=== PATIENT | male | born 1950 | race Caucasian/White ===

== ENCOUNTER 2020-07-12 09:25 | Emergency (ER) | payer MEDICARE, OTHER ==
--- NOTE | 2020-07-12 10:06 | EDM.PDOC ---
ED HPI GENERAL MEDICAL PROBLEM - General Chief Complaint: General Time Seen by Provider: 07/12/20 09:35 Source of Information: Reports: Patient - History of Present Illness INITIAL COMMENTS - FREE TEXT/NARRATIVE: Jesse is a 69 y/o male who comes to the ER this AM with a 2 weeks history of "not feeling well." He reports over the weekend he began to feel even worse. Has had a decreased appetite and just been very weak. Usually has sinus symptoms this time of year and he thought that's what it was but he has been so tired. No fever. Denies any N/V/D. - Related Data Allergies Allergy/AdvReac Type Severity Reaction Status Date / Time No Known Allergies Allergy Verified 07/12/20 09:54 Home Meds: Home Meds Albuterol Sulfate [Albuterol Sulfate Hfa] 2 inh IH Q4HR PRN 30 Days #18 [email or web address] 07/12/20 [Rx] Azithromycin 250 mg PO DAILY 5 Days #5 tablet 07/12/20 [Rx] Past Medical History HEENT History: Reports: Sinusitis - Infectious Disease History Infectious Disease History: Reports: Novel Coronavirus Social & Family History - Tobacco Use Smoking Status *Q: Former Smoker Used Tobacco, but Quit: Yes Month/Year Tobacco Last Used: 06/2020 ED ROS GENERAL - Review of Systems Review Of Systems: See Below Constitutional: Reports: Malaise, Weakness, Fatigue HEENT: Reports: Sinus Problem Respiratory: Reports: No Symptoms Cardiovascular: Reports: No Symptoms Endocrine: Reports: No Symptoms GI/Abdominal: Reports: Decreased Appetite : Reports: No Symptoms Musculoskeletal: Reports: No Symptoms Skin: Reports: No Symptoms Neurological: Reports: No Symptoms Psychiatric: Reports: No Symptoms Hematologic/Lymphatic: Reports: No Symptoms Immunologic: Reports: No Symptoms ED EXAM, GENERAL - Physical Exam Exam: See Below Exam Limited By: No Limitations General Appearance: Alert, WD/WN, No Apparent Distress (Elderly male, appears to not feel well.) Eye Exam: Bilateral Eye: PERRL Ears: Normal External Exam, Normal Canal, Hearing Grossly Normal, Normal TMs Nose: Normal Inspection, Normal Mucosa, No Blood Throat/Mouth: Normal Inspection, Normal Lips, Normal Teeth, Normal Oropharynx, Normal Voice, No Airway Compromise Head: Atraumatic, Normocephalic Neck: Normal Inspection, Supple Respiratory/Chest: No Respiratory Distress, Rales (intermittent in the RLL posteriorly) Cardiovascular: Normal Peripheral Pulses, Regular Rate, Rhythm, No Edema GI/Abdominal: Normal Bowel Sounds, Soft, Non-Tender (Male) Exam: Deferred Rectal (Males) Exam: Deferred Back Exam: Normal Inspection Extremities: Normal Inspection, No Pedal Edema, Normal Capillary Refill Neurological: Alert, Oriented, CN II-XII Intact, Normal Cognition, No Motor/Sensory Deficits Psychiatric: Normal Affect, Normal Mood Skin Exam: Warm, Dry, Intact, Normal Color Lymphatic: No Adenopathy Course - Vital Signs Text/Narrative:: 0935 Patient seen by the SOURCING COORDINATOR. COVID test done. 1000 COVID + noted, additional labs and CXR ordered. 1045 CXR reviewed. D-Dimer=1.85. Will obtained CTA since D Dimer elevated and COVID+. XRay notes a pneumonia, but labs reflect a viral presentation but will cover patient with Ceftriaxone 1mg IM and then place home on oral Azithromycin if CT neg. 1300 CTA results reviewed. Discussed with patient. He was given discharge instructions and left the ER in stable condition. Questions were also answered for his via phone. Both denied any questions and understood when to return. Last Recorded V/S: Last Vital Signs Temp 36.4 C 07/12/20 09:35 Pulse 104 H 07/12/20 11:30 Resp 18 07/12/20 11:30 BP 128/74 07/12/20 11:30 Pulse Ox 95 07/12/20 11:30 - Orders/Labs/Meds Labs: Laboratory Tests 07/12/20 07/12/20 07/12/20 Range/Units 09:40 10:10 10:10 WBC 7.7 (4.0-10.0) x10^3/uL RBC 4.84 (4.5-6.0) x10^6/uL Hgb 14.8 (14.0-18.0) g/dL Hct 41.6 (40.0-52.0) % MCV 86.0 (78.0-93.0) fL MCH 30.6 (26.0-32.0) pg MCHC 35.6 (32.0-36.0) g/dL RDW Coeff of Yung 12.2 (10.0-15.0) % Plt Count 306 (130-400) x10^3/uL Add Manual Diff Yes Neutrophils % (Manual) 70 (50-80) % Band Neutrophils % 2 (0-6) % Lymphocytes % (Manual) 14 L (25-50) % Atypical Lymphs % 1 H (0) % Monocytes % (Manual) 12 H (2-11) % Eosinophils % (Manual) 1 (0-4) % Platelet Estimate Adequate PT 10.2 (9.5-12.3) SEC INR 0.9 L (2.0-3.5) APTT 28.8 (25.6-32.8) SEC D-Dimer, Quantitative 1.85 H (<=0.58) mg/LFEU Sodium (136-145) mmol/L Potassium (3.5-5.1) mmol/L Chloride (98-107) mmol/L Carbon Dioxide (21-32) mmol/L Anion Gap (10-20) mmol/L BUN (7-18) mg/dL Creatinine (0.70-1.30) mg/dL Est Cr Clr Drug Dosing Estimated GFR (MDRD) Glucose (74-106) mg/dL Calcium (8.5-10.1) mg/dL Corrected Calcium (8.5-10.1) mg/dL Total Bilirubin (0.2-1.0) mg/dL AST (15-37) U/L ALT (16-63) U/L Alkaline Phosphatase (46-116) U/L Total Protein (6.4-8.2) g/dL Albumin (3.4-5.0) g/dL Globulin Albumin/Globulin Ratio Urine Color (YELLOW) Urine Appearance (CLEAR) Urine pH (5.0-8.0) Ur Specific [place] Urine Protein (NEGATIVE) mg/dL Urine Glucose (UA) (NEGATIVE) mg/dL Urine Ketones (NEGATIVE) mg/dL Urine Occult Blood (NEGATIVE) Urine Nitrite (NEGATIVE) Urine Bilirubin (NEGATIVE) Urine Urobilinogen (0.2) EU/dL Ur Leukocyte Esterase (NEGATIVE) Urine RBC (NOT SEEN) /HPF Urine WBC (NOT SEEN) /HPF Ur Squamous Epith Cells (NEGATIVE) /HPF Urine Bacteria (NEGATIVE) /HPF Urine Mucus (NEGATIVE) /LPF SARS CoV-2 RNA Rapid NICOLE Positive H (NEGATIVE) 07/12/20 07/12/20 Range/Units 10:10 10:22 WBC (4.0-10.0) x10^3/uL RBC (4.5-6.0) x10^6/uL Hgb (14.0-18.0) g/dL Hct (40.0-52.0) % MCV (78.0-93.0) fL MCH (26.0-32.0) pg MCHC (32.0-36.0) g/dL RDW Coeff of Yung (10.0-15.0) % Plt Count (130-400) x10^3/uL Add Manual Diff Neutrophils % (Manual) (50-80) % Band Neutrophils % (0-6) % Lymphocytes % (Manual) (25-50) % Atypical Lymphs % (0) % Monocytes % (Manual) (2-11) % Eosinophils % (Manual) (0-4) % Platelet Estimate PT (9.5-12.3) SEC INR (2.0-3.5) APTT (25.6-32.8) SEC D-Dimer, Quantitative (<=0.58) mg/LFEU Sodium 135 L (136-145) mmol/L Potassium 3.8 (3.5-5.1) mmol/L Chloride 99 (98-107) mmol/L Carbon Dioxide 23 (21-32) mmol/L Anion Gap 16.8 (10-20) mmol/L BUN 21 H (7-18) mg/dL Creatinine 1.2 (0.70-1.30) mg/dL Est Cr Clr Drug Dosing TNP Estimated GFR (MDRD) > 60 Glucose 150 H (74-106) mg/dL Calcium 8.7 (8.5-10.1) mg/dL Corrected Calcium 9.58 (8.5-10.1) mg/dL Total Bilirubin 0.6 (0.2-1.0) mg/dL AST 70 H (15-37) U/L ALT 115 H (16-63) U/L Alkaline Phosphatase 93 (46-116) U/L Total Protein 7.6 (6.4-8.2) g/dL Albumin 2.9 L (3.4-5.0) g/dL Globulin 4.7 Albumin/Globulin Ratio 0.62 Urine Color Yellow (YELLOW) Urine Appearance Clear (CLEAR) Urine pH 6.5 (5.0-8.0) Ur Specific [place] 1.015 Urine Protein 30 H (NEGATIVE) mg/dL Urine Glucose (UA) Negative (NEGATIVE) mg/dL Urine Ketones Negative (NEGATIVE) mg/dL Urine Occult Blood Negative (NEGATIVE) Urine Nitrite Negative (NEGATIVE) Urine Bilirubin Negative (NEGATIVE) Urine Urobilinogen 0.2 (0.2) EU/dL Ur Leukocyte Esterase Negative (NEGATIVE) Urine RBC 0-5 (NOT SEEN) /HPF Urine WBC Not seen (NOT SEEN) /HPF Ur Squamous Epith Cells Not seen (NEGATIVE) /HPF Urine Bacteria Rare (NEGATIVE) /HPF Urine Mucus Occasional H (NEGATIVE) /LPF SARS CoV-2 RNA Rapid NICOLE (NEGATIVE) Meds: Medications Discontinued Medications Generic Name Dose Route Start Last Admin Trade Name Freq PRN Reason Stop Dose Admin Ceftriaxone Sodium 1 gm 07/12/20 10:55 07/12/20 11:16 Rocephin IM 07/12/20 10:56 1 gm STAT ONE Administration Iopamidol 100 ml 07/12/20 11:29 Isovue-300 (61%) IVPUSH 07/12/20 11:30 ONETIME ONE - Radiology Interpretation Free Text/Narrative:: XR Chest 1V=mid right and lower lung infiltrates, hx COPD Departure - Departure Time of Disposition: 12:58 Disposition: Home, Self-Care 01 Condition: Good Clinical Impression: Pneumonia due to COVID-19 virus, COPD (chronic obstructive pulmonary disease) - Discharge Information Prescriptions: Albuterol Sulfate [Albuterol Sulfate Hfa] 2 inh IH Q4HR PRN 30 Days #18 [email or web address] PRN Reason: Shortness Of Breath Azithromycin 250 mg PO DAILY 5 Days #5 tablet Instructions: Chronic Obstructive Pulmonary Disease Exacerbation, [id number], COVID-19 Frequently Asked Questions, COVID-19: How to Protect Yourself and Others - [facility] Referrals: PCP,None [Primary Care Provider] - Forms: ED Department Discharge Sepsis Event Note (ED) - Evaluation Sepsis Screening Result: No Definite Risk - Focused Exam Vital Signs: Vital Signs Temp Pulse Resp BP Pulse Ox 07/12/20 11:30 104 H 18 128/74 95 07/12/20 10:30 118 H 20 118/77 94 L 07/12/20 09:35 36.4 C 128 H 18 121/79 93 L - Assessment/Plan Assessment:: 1)COVID + 2)COVID Pneumonia 3)COPD Plan: -Albuterol HFA inhaler 1-2 puffs every 4 hours as needed for cough (Rx) -Azithromycin 250mg 2 tablet soral Day 1, then 1 tablet oral daily Day 2-5 (Rx) -Any over the counter meds that are helpful are fine to use. -Honey 1-2 tsp every couple hours is an effective antitussive. -Follow the quarantine guidelines -Some helpful supplements to help with COVID 19 include Zinc, Vitamin C, and Vitamin D -If you develop any shortness or breath or cannot take care of yourself, return to the ER.
[2020-07-12 10:39] LABS: ANION GAP 16.8 mmol/L (10-20); CHLORIDE,CL 99 mmol/L (98-107); SODIUM,NA 135 mmol/L (136-145)
[2020-07-12 10:40] LABS: PTT,PARTIAL THROMBOPLSTIN TIME 28.8 SEC (25.6-32.8)
--- NOTE | 2020-07-12 10:40 | CR ---
[id number] RAD/RAD Chest PA or AP 1V EXAM: FRONTAL CHEST INDICATION: POSITIVE COVID. COMPARISON: None. DISCUSSION: Mild right mid and lower lung infiltrates. COPD. Linear scarring or atelectasis in the left lung base. Normal heart size. IMPRESSION: 1. Mild right mid and lower lung infiltrates. Reji Thompson MD 07/12/20 1038 Thank you for allowing us to participate in the care of your patient.
[2020-07-12] MEDS ORDERED: cefTRIAXone 1 GM Vial IM ONE (10:55)
[2020-07-12] MEDS ORDERED: Iopamidol 612 MG/ML 100 ML Bottle IVPUSH ONE (11:29)
--- NOTE | 2020-07-12 12:43 | CT ---
[id number] CT/CTA Chest Exam: CTA Chest Clinical Data: POSITIVE D-DIMER PNEUMONIA COMPARISON: NO PREVIOUS SIMILAR EXAM IS AVAILABLE FINDINGS: Bilateral peripheral groundglass pulmonary parenchymal opacities are seen There are no pulmonary emboli There are hepatic hypodensities most consistent with benign cysts IMPRESSION: NO PULMONARY EMBOLI BILATERAL PNEUMONIA Shaggy Leonard MD 07/12/20 1241 Thank you for allowing us to participate in the care of your patient.
== END 2020-07-12 13:20 | disposition home or self-care (01) ==
LOC: VM.ED 09:25
DX: U07.1 COVID-19 (principal); J12.89 Other viral pneumonia; J44.9 Chronic obstructive pulmonary disease, unspecified; Z87.891 Personal history of nicotine dependence
CPT/HCPCS: 36415; 71045; 71275; 80053; 81001; 85025; 85379; 85610; 85730; 96372; 99284; 99284-25; J0696; Q9967; U0002

== ENCOUNTER 2021-05-26 08:43 | Day surgery (SDC) | payer MEDICARE, OTHER ==
[~2021-05-26 08:43] MED LIST: Lactated Ringers 1,000 ML IV SCH
[2021-05-26] MEDS ORDERED: Propofol 200 MG/20 ML SDV ONE ×2 (09:43→10:02)
--- NOTE | 2021-05-26 15:32 | OR ---
DATE OF SURGERY: 05/26/2021. REFERRING PROVIDER: Katya Avalos MD PRE-OPERATIVE DIAGNOSIS: Screening colonoscopy. The patient states last scope procedure was maybe 30 or 40 years ago and sounds like may have been a sigmoidoscopy done without sedation in the clinic. The patient denies any family history of colon cancer. POST-OPERATIVE DIAGNOSES: 1. Moderate diverticulosis, diffuse, but left greater than right. 2. Otherwise normal colon. PROCEDURE: Colonoscopy. SURGEON: Morgan Granados M.D. ANESTHESIA: Monitored anesthesia care. BOWEL PREP: Good. Lee is a 70-year-old male who was brought to the endoscopy suite after discussing risks and benefits of the procedure. Informed consent was obtained for conscious sedation and colonoscopy with or without biopsy and/or polypectomy. We also discussed possibility of missed lesions. Pre-procedure exam was unremarkable. IV, oxygen, and monitors were placed. The patient was placed in the left lateral decubitus position. Sedation was administered and a digital rectal exam was performed and unremarkable. Colonoscope was passed into the rectum and slowly advanced all the way to the cecum. Cecum was viewed and photographed. The colonoscope was slowly withdrawn and the mucosa was closed observed in a direct circumferential manner. The patient did have moderate diffuse diverticulosis, but more so on the left colon. Otherwise, the ascending colon was unremarkable. The transverse colon was unremarkable. The descending colon was unremarkable. The sigmoid colon was unremarkable. Retroflexion was performed and rectal mucosa was unremarkable. Scope was removed. The patient tolerated the procedure well. The patient was monitored until that baseline status. Discharge instructions were reviewed and the patient was discharged in good condition. COMPLICATIONS: None. TOTAL TIME: 15 minutes. ESTIMATED BLOOD LOSS: None. RECOMMENDATIONS/FOLLOW-UP: The patient is good for 10 years on colon cancer screening and then he and his PCP can consider repeating depending on health status and personal preference at that time. I would like to kindly thank Dr. Avalos for this referral. DMB: 05/26/2021 12:40:23 MODL: 05/26/2021 13:38:34 /[id number]
== END 2021-05-26 12:00 | disposition home or self-care (01) ==
LOC: VM.SDS 08:43
PROVIDERS: ATTEND Family Medicine
DX: Z12.11 Encounter for screening for malignant neoplasm of colon (principal); K57.30 Diverticulosis of large intestine without perforation or abscess without bleeding; K21.9 Gastro-esophageal reflux disease without esophagitis; Z87.891 Personal history of nicotine dependence
CPT/HCPCS: 00812; J2704; J7120